=== PATIENT | female | born 1955 | race African-American/Black ===

== ENCOUNTER 2019-06-22 11:17 | Emergency (ER) | payer OTHER ==
[~2019-06-22] VITALS: Ht 162.6 cm; Wt 82.1 kg
[2019-06-22 11:24] VITALS: Ht 162.6 cm; Wt 82.1 kg
[2019-06-22 13:37] VITALS: BP 150/71
== END 2019-06-22 13:37 | disposition home or self-care (01) ==
LOC: ED 11:17
DX: S62.306A Unspecified fracture of fifth metacarpal bone, right hand, initial encounter for closed fracture (principal); J45.909 Unspecified asthma, uncomplicated; I10 Essential (primary) hypertension; Z88.6 Allergy status to analgesic agent; Z86.73 Personal history of transient ischemic attack (TIA), and cerebral infarction without residual deficits; W01.0XXA Fall on same level from slipping, tripping and stumbling without subsequent striking against object, initial encounter; Y93.89 Activity, other specified; Y92.89 Other specified places as the place of occurrence of the external cause; Y99.8 Other external cause status
CPT/HCPCS: Q0092